=== PATIENT | female | born 1960 | race Caucasian/White ===

== ENCOUNTER 2016-11-21 20:55 | Emergency (ER) | payer OTHER ==
[~2016-11-21 20:55] MED LIST: AMLODIPINE BESY10 M1 PO; ASPIR 8181 M1 PO; DAILY MULTIPLE1 EAC2 PO; JANUMET 50-1,01 EACH PO; LOSARTAN POTASS25 M1 PO; METOPROLOL TAR100 M2 PO; NORCO 5-325 TA1 EACH PO; ROBAXIN500 M1 PO; SIMVASTATIN10 M1 PO; TRULICITY1.5 MG/0.5 SC
[2016-11-21] MEDS ORDERED: GUAIFENESIN-COD10 ML PO (22:56)
[2016-11-21] MEDS ORDERED: AZITHROMYCIN250 M1 PO (22:56)
== END 2016-11-22 00:17 ==
LOC: EDMED 20:55
DX: J18.9 Pneumonia, unspecified organism (principal); J98.01 Acute bronchospasm; E11.9 Type 2 diabetes mellitus without complications; I10 Essential (primary) hypertension